=== PATIENT | male | born 1965 | race Caucasian/White ===

== ENCOUNTER 2025-04-25 09:28 | Emergency (ER) | payer BC, SELFPAY ==
[2025-04-25 09:40] VITALS: BP 131/70; PULSE 70; RESP 19; TEMP 36.3; O2SAT 99
[2025-04-25 09:42] VITALS: PULSE 62; O2SAT 99; BMI 28.0
--- NOTE | 2025-04-25 10:28 | EDNOTE_ITS ---
ED Headache RME/HPI General Chief Complaint: Flu Like Symptoms Stated Complaint: HYPOTENSION Arrival date/time: 04/25/25 09:28 Mode of arrival: EMS Limitations: no limitations RME / HPI RME / HPI Narrative: Patient is a 59-year-old male who is in emergency department after having felt lightheaded, felt like he was going to pass out earlier today. Patient has had bodyaches and felt unwell for the last 2 days. Denies fevers chills cough runny nose abdominal pain dysuria hematuria melena bloody stools drugs alcohol smoking chest pain palpitations recent travel sick contacts. Patient states that his symptoms started yesterday, went to bed woke up felt okay started driving to work and then started feeling lightheaded and his vision was going. Arrived to work, felt weak EMS was called. When they arrived his blood pressure was in the 80s. Provided patient with fluids brought up to the emergency department. Related Data Home Medications ?Medication ?Instructions ?Recorded ?Confirmed lisinopril 2.5 mg tablet 2.5 mg PO QDAY 08/06/1911/20 losartan 25 mg tablet 25 mg PO QDAY 08/06/1908/06 Previous Rx's ?Medication ?Instructions ?Recorded acyclovir 800 mg tablet (Zovirax) 800 mg PO 5 TIMES DA DIANA #35 tabs 08/06/19 hydrocodone 5 mg-acetaminophen 325 1 tab PO BID PRN pa in #14 tabs 08/06/19 mg tablet (Prosper) Allergies Allergy/AdvReac Type Severity Reaction Status Date / Time NKA* Allergy Uncoded 10/22/15 09:58 Review of Systems Review of Systems Systems Reviewed: All systems reviewed, normal except as documented Past Medical History Past Medical History CARDIAC: Positive Hypertension Social History SMOKING STATUS: Never smoker ED Exam General Limitations: Present no limitations General appearance: Present alert and in no apparent distress Head Head exam: Present atraumatic and normocephalic Eye Eye exam: Present normal appearance, PERRL and EOMI ENT ENT exam: Present normal exam and normal oropharynx Neck Neck exam: Present normal inspection, full ROM and trachea midline Chest Chest inspection: Present normal inspection and symmetric chest wall rise Respiratory Respiratory exam: Present normal lung sounds bilaterally; Absent respiratory distress, wheezes or stridor Cardiovascular Cardiovascular exam: Present regular rate and normal rhythm Abdominal Exam Abdominal exam: Present soft; Absent distention or tenderness Extremities Exam Extremities exam: Present normal inspection and full ROM Neurological Exam Neurological exam: Present alert, oriented X3 and CN II-XII intact; Absent motor sensory deficit Skin Skin exam: Present warm, dry, intact and normal color; Absent rash, cyanosis, diaphoresis or erythema Course Quality Measures none Orders Category Date Time Status Bedside COVID-19 Antigen Test NOW Care 04/25/25 10:[address] Screening NOW Care 04/25/25 10:40 Active EKG (ED ONLY) *Do not use* NOW Care 04/25/25 10:[address] angio carotid w head w Stat Exams 04/25/25 10:[address] head/brain wo con Stat Exams 04/25/25 10:38 Completed CXR [XR chest 1V] Stat Exams 04/25/25 10:38 Completed EKG (ED Only) Stat Exams 04/25/25 10:44 Draft Acetaminophen Stat Lab 04/25/25 11:15 Completed Blood Culture (Lab) Stat Lab 04/25/25 11:09 Received CBC Stat Lab 04/25/25 11:15 Completed CMP [Comprehensive Metabolic Panel] Stat Lab 04/25/25 11:15 Completed Drug Screen,Urine Stat Lab 04/25/25 10:47 Completed Influenza A & B Rapid Panel Stat Lab 04/25/25 11:27 Completed PT [Prothrombin Time with INR] Stat Lab 04/25/25 11:15 Completed Procalcitonin Stat Lab 04/25/25 11:15 Completed T4 (Thyroxine) Stat Lab 04/25/25 11:15 Completed TSH [Thyroid Stimulating Hormone] Stat Lab 04/25/25 11:15 Completed Troponin I Stat Lab 04/25/25 11:15 Completed Urinalysis, C/S if Indicated Stat Lab 04/25/25 10:47 Completed Acetaminophen Tab [Tylenol Tab] Med 04/25/25 10:41 Discontinued 650 mg PO X1 ONE Ringers Lactated 1000 ml [Lactated Ringers] 1,000 ml Med 04/25/25 10:43 Discontinued IV 999 mls/hr Vital Signs Vital signs: Vital Signs Temperature 97.3 F 04/25/25 09:40 Pulse Rate 70 04/25/25 09:40 Respiratory Rate 19 04/25/25 09:40 Blood Pressure 131/70 H 04/25/25 09:40 Pulse Oximetry (%) 99 04/25/25 09:40 Oxygen Delivery Method Room Air 04/25/25 09:40 Pulse ox is 99% on room air which is adequate. Headache MDM Narrative MDM Narrative:: Patient is a 59-year-old male with medical history notable for hypertension, hyperlipidemia that is in the emergency department with concerns for 2 days of bodyaches, weakness, and generally feeling unwell. Vital signs and exam as listed. Patient without any focal neurodeficits on my exam, no cranial nerve abnormalities, patient GCS 15. Patient last known well yesterday morning approximately 7 AM. Patient concerned because he had an episode of weakness, body aches, slurred speech. When EMS arrived, patient was hypotensive. Received fluids. Broad differential considered including ACS arrhythmia electrolyte abnormality viral syndrome pneumonia urinary tract infection acute intracranial hemorrhage among others. Ordered labs, EKG, chest x-ray, CT brain. Also ordered medications for symptom relief. Labs without any acute hematologic or significant metabolic abnormality. No transaminitis. Troponin not elevated. Procalcitonin elevated, thyroid studies unremarkable, urinalysis without evidence of infection. Patient Tylenol level is 2.9 mcg however patient was given Tylenol here in the the emergency de partment. Patient is benzodiazepine positive. EKG sinus rhythm, normal QT, NV 213, nonspecific T wave changes, not a cardiac alert. COVID-negative. CT brain, CT angio head and neck without any acute abnormalities. Patient does have a 15 mm thyroid nodule. Patient is flu negative. Patient without any tenderness to palpation of the neck. On reevaluation patient hemodynamically stable not in distress, tolerating oral intake, ambulating without difficulty. Will discharge to home with close return precautions follow-up with his primary care doctor encouraged adequate hydration. Updated patient as well as his sister at bedside. I also advised him not to drive given his syncopal episode. Close return precautions. Patient data External records reviewed:: [facility] previous records and EMS form Clinical information provided by:: patient and EMS Social determinants that could affect healthcare access:: none Patient has the following chronic illnesses:: See MDM How is presenting disease/condition affected by chronic disease/condition?: exacerbated by Evaluation data The following diagnostics were reviewed and interpreted by me:: lab results, radiology exam(s) and EKG tracing(s) Lab and/or radiology exams considered but not ordered:: None Interpretation Summary: Ordering Physician: Cherrie Valdez MD Date of Service: 04/25/25 Procedure(s): XR chest 1V Accession Number(s): [id number] cc: Kavin Leos MD; Anthony Lamas MD; Cherrie Valdez MD~ Examination: AP chest single view Technique one AP portable upright chest single view Date and time: April 25, 2025 1054 hours INDICATIONS: Blurred vision today with congestion. FINDINGS: Normal heart size The lungs are clear. Moderate osteopenia IMPRESSION: No active disease Dictated By: Kavin Leos MD Signed By: <Electronically signed by Kavin Leos MD in OV> 04/25/25 1134 Ordering Physician: Cherrie Valdez MD Date of Service: 04/25/25 Procedure(s): CT head/brain wo con Accession Number(s): [id number] cc: Kavin Leos MD; Anthony Lamas MD; Cherrie Valdez MD~ Examination: CT brain head without contrast. 2-D sagittal coronal reconstructions Date and time of exam:April 25, 2025 1439 hours INDICATIONS: Onset dizziness and weakness today CTDI: vol (mGy):49.9 DLP: (mGycm):1019 Technique: Multiple CT axial sections of the brain have been obtained, 5 mm slice thickness. Contrast has not been administered. 2-D sagittal, coronal reconstructions have been obtained Low dose protocols were performed. One or more of the following dose reduction techniques were used; automated exposure control, adjustment of the mA and/or KV according to patient size, use of iterative reconstruction technique. Findings: No significant ventricular enlargement. Intra-axial or extra-axial hemorrhage density is not seen. No mass effect or midline shift Basal cisterns are not remarkable. Fourth ventricle is midline. Cranial vault intact. Significant pansinusitis Impression: Negative for acute hemorrhage, mass effect or midline shift Advise clinical correlation follow-up accordingly Dictated By: Kavin Leos MD Signed By: <Electronically signed by Kavin Leos MD in OV> 04/25/25 1519 Ordering Physician: Cherrie Valdez MD Date of Service: 04/25/25 Procedure(s): CT angio carotid w head w Accession Number(s): [id number] cc: Kavin Leos MD; Anthony Lamas MD; Cherire Valdez MD~ Examination: CTA carotids with intravenous contrast CTA brain, head with intravenous contrast. 2-D sagittal, coronal reconstructions. 3-D reconstructions. Exam date and time: April 25, 2025, 1443 hours INDICATIONS: Dizziness episodes today CTDI: vol (mGy) 11.3 DLP: (mGycm) 407 Technique: Multiple CTA axial brain, head carotid images post intravenous contrast injection 75 cc, Isovue-370. 2-D sagittal, coronal reconstructions. 3-D reconstructions, 3-D post processing including vascular maximum intensity projection images. Low dose protocols were performed. One or more of the following dose reduction techniques were used; automated exposure control, adjustment of the mA and/or KV according to patient size, use of iterative reconstruction technique. Findings: 15 mm left thyroid nodule No significant common carotid carotid bifurcation or internal carotid artery stenoses Codominant vertebral arteries in the neck with no critical stenoses Intracranial vertebral arteries basilar artery posterior cerebral branches fill with no large vessel occlusions Juxtasellar internal carotid arteries M1 segments middle cerebral arteries middle cerebral artery trifurcation vessels and anterior cerebral arteries fill with no large vessel occlusions IMPRESSION: 15 mm left thyroid nodule No significant neck arterial stenoses No cerebral large vessel arterial occlusions Dictated By: Kavin Leos MD Signed By: <Electronically signed by Kavin Leos MD in OV> 04/25/25 1521 Medications / Prescriptions Medications or Prescriptions considered but not ordered:: None Medication administrations:: Medication Administration History Discontinued Medications Acetaminophen (Acetaminophen 325 Mg Tablet) 650 mg PO X1 ONE Stop: 04/25/25 10:42 Last Admin: 04/25/25 11:02 Dose: 650 mg Documented By: TOYA Lactated Ringer's (Lactated Ringers) 1,000 mls @ 999 mls/hr IV .Q1H1M ONE Stop: 04/25/25 11:43 Last Infusion: 04/25/25 12:20 Dose: Infused Documented By: Admin: 04/25/25 11:03 Dose: 999 mls/hr Documented By: TOYA See above Consultations Consultation(s) initiated? (list below): No Diagnosis Differential diagnosis headache: other (See MDM ) Most likely diagnosis given after review of the tests above:: presyncope Admission Indicated Admission indicated?: not indicated Admission Request Was there a request for admission?: No Disposition Plan Disposition Plan: Discharge Discharge Attestation Discharge Attestation: The patient and all family members were given an opportunity to ask questions and understood the discharge instructions. Discharge instructions specifically effects, indications for sooner follow up or return to the emergency department, and the expected course of current diagnosis. Patient condition: Stable Discharge Plan Plan Patient Disposition: HOME (Self Care) Prescriptions/Referrals Prescriptions/Med Rec: No Action losartan 25 mg Tablet 25 mg PO QDAY lisinopril 2.5 mg Tablet 2.5 mg PO QDAY hydrocodone-acetaminophen [Prosper] 5-325 mg tablet 1 tab PO BID MDD 4 PRN (Reason: pain) Qty: 14 0RF acyclovir [Zovirax] 800 mg tablet 800 mg PO 5 TIMES DAILY Qty: 35 0RF Referrals: Anthony Lamas MD [Primary Care Provider, Family Practice] - In 1 week Problem List Clinical Impression: Body aches, Weakness, Pre-syncope Patient/Caregiver Discharge Instructions Education Materials: Causes of Syncope Additional Instructions: Please maintain adequate hydration at home, you can take Tylenol and ibuprofen for your symptoms. Follow-up with your primary care doctor within the next 1 to 2 days. I recommend that you establish care with a pipe fitter supervisor maintenance and get a stress test given your episode of syncope. I recommend that you do not drive nor operate heavy machinery until you are evaluated by pipe fitter supervisor maintenance. Print Language: Citizen [place] Stand Alone Forms: [employer] Info., Patient Portal Info Letter
--- NOTE | 2025-04-25 10:38 | XR_ITS ---
Examination: AP chest single view Technique one AP portable upright chest single view Date and time: April 25, 2025 1054 hours INDICATIONS: Blurred vision today with congestion. FINDINGS: Normal heart size The lungs are clear. Moderate osteopenia IMPRESSION: No active disease
--- NOTE | 2025-04-25 10:38 | XR_ITS ---
Examination: CT brain head without contrast. 2-D sagittal coronal reconstructions Date and time of exam:April 25, 2025 1439 hours INDICATIONS: Onset dizziness and weakness today CTDI: vol (mGy):49.9 DLP: (mGycm):1019 Technique: Multiple CT axial sections of the brain have been obtained, 5 mm slice thickness. Contrast has not been administered. 2-D sagittal, coronal reconstructions have been obtained Low dose protocols were performed. One or more of the following dose reduction techniques were used; automated exposure control, adjustment of the mA and/or KV according to patient size, use of iterative reconstruction technique. Findings: No significant ventricular enlargement. Intra-axial or extra-axial hemorrhage density is not seen. No mass effect or midline shift Basal cisterns are not remarkable. Fourth ventricle is midline. Cranial vault intact. Significant pansinusitis Impression: Negative for acute hemorrhage, mass effect or midline shift Advise clinical correlation follow-up accordingly
--- NOTE | 2025-04-25 10:39 | XR_ITS ---
Examination: CTA carotids with intravenous contrast CTA brain, head with intravenous contrast. 2-D sagittal, coronal reconstructions. 3-D reconstructions. Exam date and time: April 25, 2025, 1443 hours INDICATIONS: Dizziness episodes today CTDI: vol (mGy) 11.3 DLP: (mGycm) 407 Technique: Multiple CTA axial brain, head carotid images post intravenous contrast injection 75 cc, Isovue-370. 2-D sagittal, coronal reconstructions. 3-D reconstructions, 3-D post processing including vascular maximum intensity projection images. Low dose protocols were performed. One or more of the following dose reduction techniques were used; automated exposure control, adjustment of the mA and/or KV according to patient size, use of iterative reconstruction technique. Findings: 15 mm left thyroid nodule No significant common carotid carotid bifurcation or internal carotid artery stenoses Codominant vertebral arteries in the neck with no critical stenoses Intracranial vertebral arteries basilar artery posterior cerebral branches fill with no large vessel occlusions Juxtasellar internal carotid arteries M1 segments middle cerebral arteries middle cerebral artery trifurcation vessels and anterior cerebral arteries fill with no large vessel occlusions IMPRESSION: 15 mm left thyroid nodule No significant neck arterial stenoses No cerebral large vessel arterial occlusions
[2025-04-25 10:40] VITALS: BP 116/64; PULSE 61; RESP 18; O2SAT 96
--- NOTE | 2025-04-25 10:44 | EKG_ITS ---
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
[2025-04-25] MEDS: ACETAMINOPHEN 325 MG TABLET 650 MG PO (11:02)
[2025-04-25] MEDS: RINGERS LACTATED 1000 ML 1,000 ML 999 ML IV (11:03)
[2025-04-25 11:04] LABS: Collection Type, Urine Clean Catch; Squamous Epithelial Cell,Urine 0 /hpf (0-5)
[2025-04-25 11:23] LABS: Amphetamine/Methamp Scrn,U Negative (Negative); Barbiturate Screen,Urine Negative (Negative); Benzodiazepines Screen,Urine Positive (Negative); Benzoylecgonine Screen, Ur Negative (Negative); Fentanyl Screen,Urine Negative (Negative); Opiate Screen,Urine Negative (Negative); THC Screen,Urine Negative (Negative)
[2025-04-25 11:25] LABS: Basophils # (Auto) 0.1 Thou/mm3 (0.0-0.2); Basophils % (Auto) 1 % (0-2.5); Eosinophils # (Auto) 0.4 Thou/mm3 (0.0-0.5); Eosinophils % (Auto) 4 % (0-10); Hematocrit 42.0 % (41.0-53.0); Hemoglobin 14.5 g/dL (13.5-16.0); Immature Granulocytes Auto 0.03 Thou/mm3 (0.00-0.00); Lymphocytes # (Auto) 1.8 Thou/mm3 (1.0-4.8); Lymphocytes % (Auto) 19 % (10-50); Mean Corpuscular HGB Conc 34.5 g/dl (31.0-37.0); Mean Corpuscular Hemoglobin 29.3 pg (25.0-35.0); Mean Corpuscular Volume 85 fL (80-100); Monocytes # (Auto) 0.6 Thou/mm3 (0.0-0.8); Monocytes % (Auto) 7 % (0-12); Neutrophils # (Auto) 6.5 Thou/mm3 (1.8-7.7); Neutrophils % (Auto) 69 % (37-80); Nucleated Red Blood Cell # 0.00 Thou/mm3 (0.00-0.00); Nucleated Red Blood Cell % 0 /100 WBC (0); Platelet Count 270 Thou/mm3 (140-440); RDW Standard Deviation 41.1 fL (35.1-43.9); Red Blood Count 4.95 Miln/mm3 (4.50-5.90); White Blood Count 9.4 Thou/mm3 (3.8-10.6)
[2025-04-25 11:27] LABS: Bilirubin,Urine Negative (Negative); Blood,Urine Negative (Negative); Clarity,Urine Clear (Clear/Hazy); Color,Urine Colorless (Lt Yel-Yel); Culture Indicated,Urine Not Indicated; Glucose, Urine Negative (Negative); Ketones,Urine Negative (Negative); Leukocyte Esterase,Urine Negative (Negative); Nitrite,Urine Negative (Negative); PH,Urine 7.5 (5.0-7.0); Protein,Urine Negative (Neg - Trace); RBC,Urine < 1 /hpf (0-3); Specific Gravity,Urine 1.008 (1.001-1.035); Urobilinogen,Urine Negative mg/dL (0.0-1.0); WBC,Urine 1 /hpf (0-5)
[2025-04-25 11:38] LABS: INR 1.0 (0.9-1.3); Prothrombin Time 11.2 Seconds (9.0-12.2)
[2025-04-25 11:55] LABS: Acetaminophen 2.9 mcg/mL (10.0-20.0); Alanine Aminotransferase 36 U/L (10-49); Albumin, Serum 4.3 gm/dL (3.4-4.8); Albumin/Globulin Ratio 1.6 (1.2-2.2); Alkaline Phosphatase 85 U/L (46-116); Anion Gap 8 (7-16); Aspartate Amino Transferase 21 U/L (0-34); BUN/Creatinine Ratio 16 Ratio (12-20); Bilirubin,Total 0.4 mg/dL (0.3-1.2); Blood Urea Nitrogen 19 mg/dL (9-23); Calcium 10.0 mg/dL (8.3-10.6); Calcium (Corrected) 10.0 mg/dL (8.5-10.1); Carbon Dioxide 28.0 mMol/L (20.0-31.0); Chloride 104 mMol/L (98-107); Creatinine (Component) 1.2 mg/dL (0.6-1.3); Estimated Creatinine Clearance 71.2 mL/min (>60); Globulin 2.7 gm/dL (2.3-3.5); Glucose 141 mg/dL (74-106); Osmolality,Calculated 283 (275-295); Potassium 4.1 mMol/L (3.4-5.1); Procalcitonin 0.05 ng/ml (0.0-0.49); Sodium 140 mMol/L (136-145); Thyroid Stimulating Hormone 1.85 uIU/mL (0.55-4.78); Total Protein 7.0 gm/dL (5.7-8.2); Troponin I < 0.002 ng/mL (0.0-0.045); eGFR > 60 See Note
[2025-04-25 11:57] LABS: T4 (Thyroxine) 9.0 mcg/dL (4.5-10.9)
[2025-04-25 12:17] LABS: Influenza A Ag Negative; Influenza B Ag Negative
[2025-04-25 12:24] VITALS: BP 109/48; PULSE 58; RESP 16; TEMP 36.8; O2SAT 96
--- NOTE | 2025-04-25 14:37 | PC.NURSE ---
PATIENT TO CT
[2025-04-25 15:24] VITALS: BP 134/71; PULSE 55; RESP 15; TEMP 36.6; O2SAT 96
== END 2025-04-25 15:48 | disposition home or self-care (01) ==
PROVIDERS: Emergency Provider Emergency Medicine; PCP Family Medicine
DX: R55 Syncope and collapse (principal); R53.1 Weakness; E04.1 Nontoxic single thyroid nodule
CPT/HCPCS: 36415; 70450; 70496; 70498; 71045; 80053; 80307; 80329; 81001; 84145; 84436; 84443; 84484; 85025; 85610; 87040; 87502; 87811; 93005; 96360; 99284; A4649; J7120; Q9967; A9270; G0480